=== PATIENT | female | born 1985 | race Caucasian/White ===

== ENCOUNTER 2022-05-25 07:24 | Outpatient (CLI) | payer OTHER, SELFPAY ==
--- NOTE | 2022-05-25 07:45 | CRLHL7_ITS ---
For Patients: As a result of the Century Cures Act, medical imaging exams and procedure reports are released immediately into your electronic medical record. You may view this report before your referring provider. If you have questions, please contact your health care provider. CLINICAL HISTORY: LEFT breast palpable lump. COMPARISON: Left breast ultrasound 05/03/2018 TECHNIQUE: Digital BILATERAL mammogram in 4 projections. Real-time ultrasound imaging of LEFT breast with imaging documentation. BREAST COMPOSITION: Heterogeneously dense. FINDINGS: 3D CC/MLO mammogram submitted bilaterally. No suspicious masses or architectural distortion. No adenopathy or suspicious calcifications. Targeted left breast ultrasound performed in the area of concern at 6 o`clock 4 cm from the nipple. Normal fibroglandular tissue is present. No solid masses or fibrocystic changes. IMPRESSION: Normal bilateral mammograms and targeted LEFT breast ultrasound. No evidence of malignancy. RECOMMENDATIONS: Routine age-appropriate screening mammography. BI-RADS Category 1: Negative Results and recommendations discussed with the patient. Dictated by Ganga Bustillo MD @ 05/25/2022 9:03:54 AM SALAS/mi DW/Dictated by: Ganga Bustillo MD @ 05/25/2022 9:34:00 AM (Electronically Signed)
== END 2022-05-25 07:25 | disposition home or self-care (01) ==
PROVIDERS: PCP Physician Assistant Medical; Visit Provider Family Medicine
DX: N63.20 Unspecified lump in the left breast, unspecified quadrant (principal); R92.2 Inconclusive mammogram
CPT/HCPCS: 76642; 77066; G0279